=== PATIENT | male | born 1990 | race Caucasian/White ===

== ENCOUNTER 2017-04-22 09:47 | Emergency (ER) | payer SELFPAY ==
[~2017-04-22] VITALS: Ht 175.3 cm; Wt 102.1 kg
[2017-04-22 10:04] VITALS: BP 128/68
--- NOTE | 2017-04-22 10:04 | NUR ---
PATIENT TO CHAIR #D
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
--- NOTE | 2017-04-22 10:15 | NUR ---
DR MORGAN EVALUATING PT;
--- NOTE | 2017-04-22 10:28 | NUR ---
PT WENT TO XRAY ACCOMPANIED BY KRISTIN BRANTLEY AND TECH.
--- NOTE | 2017-04-22 10:35 | NUR ---
BACK FROM XRAY ACCOMPANIED BY KRISTIN BRANTLEY AND ORIANA;WILL CONTINUE TO MONITOR PT.
[2017-04-22] MEDS: IBUPROFEN 800 MG TAB PO ONE (10:54)
[2017-04-22 11:22] VITALS: BP 150/77
--- NOTE | 2017-04-22 11:22 | NUR ---
Patient discharged with v/s stable. Written and verbal after care instructions given and explained. Patient verbalized understanding. Ambulatory with steady gait. All questions addressed prior to discharge. Advised to follow up with PMD.
== END 2017-04-22 11:22 ==
LOC: MED 09:47
DX: Z02.89 Encounter for other administrative examinations (principal); S00.12XA Contusion of left eyelid and periocular area, initial encounter; W22.8XXA Striking against or struck by other objects, initial encounter; Y93.89 Activity, other specified; Y92.89 Other specified places as the place of occurrence of the external cause; Y99.8 Other external cause status
CPT/HCPCS: 70150; 99284

== ENCOUNTER 2017-04-22 12:02 | Emergency (ER) | payer SELFPAY ==
[~2017-04-22] VITALS: Ht 170.2 cm; Wt 102.1 kg
--- NOTE | 2017-04-22 12:04 | NUR ---
PT BIBA TO [facility].
[2017-04-22] MEDS ORDERED: ALPRAZolam 0.5 MG TAB PO ONE (12:10)
[2017-04-22 12:13] VITALS: BP 162/84
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
[2017-04-22 12:20] VITALS: BP 162/84
--- NOTE | 2017-04-22 12:20 | NUR ---
Patient discharged with v/s stable. Written and verbal after care instructions given and explained. Patient verbalized understanding. Ambulatory with steady gait. All questions addressed prior to discharge. Advised to follow up with PMD.Pt discharged without signing and taking discharge papers.
== END 2017-04-22 12:04 ==
LOC: MED 12:02
DX: Z02.89 Encounter for other administrative examinations (principal); F41.9 Anxiety disorder, unspecified
CPT/HCPCS: 99283